=== PATIENT | female | born 1995 | race Caucasian/White ===

== ENCOUNTER 2022-10-28 18:35 | Emergency (ER) | payer OTHER ==
[~2022-10-28] VITALS: Ht 162.6 cm; Wt 61.7 kg
[2022-10-28 18:44] VITALS: BP 124/79
[2022-10-28] MEDS ORDERED: CEPH-588 PO (20:11)
[2022-10-28] MEDS ORDERED: IBUP-2213 PO (20:11)
[2022-10-28 20:23] VITALS: BP 122/76
--- NOTE | 2022-10-28 20:23 | NUR ---
Patient discharged with v/s stable. Written and verbal after care instructions given and explained. Patient alert, oriented and verbalized understanding of instructions. Ambulatory with steady gait. All questions addressed prior to discharge. ID band removed. Patient advised to follow up with PMD. Rx of keflex/ibuprofen given. Patient educated on indication of medication including possible reaction and side effects. Opportunity to ask questions provided and answered.
== END 2022-10-28 20:23 | disposition home or self-care (01) ==
LOC: MED 18:35
DX: R21 Rash and other nonspecific skin eruption (principal); R22.0 Localized swelling, mass and lump, head; Z79.899 Other long term (current) drug therapy
CPT/HCPCS: 99283